=== PATIENT | male | born 1990 | race Two or more races ===

== ENCOUNTER 2025-10-07 23:16 | Emergency (ER) | payer OTHER ==
[~2025-10-07] VITALS: Ht 180.3 cm; Wt 93.0 kg
[2025-10-07] MEDS ORDERED: IBUPROFEN 600 MG TABLET ONE (23:37)
[2025-10-07] MEDS ORDERED: ACETAMINOPHEN ES 500 MG TABLET ONE (23:37)
[2025-10-07] MEDS ORDERED: AMOX/CLAVULANATE 875 MG TABLET ONE (23:38)
[2025-10-07] MEDS ORDERED: TDAP [DIPH/PERTUSSIS/TET] 0.5 ML VIAL IM ONE (23:38)
[2025-10-07] MEDS: AMOX/CLAVULANATE 875 MG TABLET PO ONE (23:44)
[2025-10-07] MEDS: TDAP [DIPH/PERTUSSIS/TET] 0.5 ML VIAL IM ONE (23:44)
[2025-10-07] MEDS: ACETAMINOPHEN ES 500 MG TABLET PO ONE (23:45)
[2025-10-07] MEDS: IBUPROFEN 600 MG TABLET PO ONE (23:45)
[2025-10-08] MEDS ORDERED: IBUP-1490 PO (00:18)
[2025-10-08] MEDS ORDERED: AMOX-430 PO (00:18)
[2025-10-08 00:24] VITALS: BP 132/90; TEMP 98; O2SAT 99
== END 2025-10-08 00:25 | disposition home or self-care (01) ==
LOC: ER 23:20
DX: S61.251A Open bite of left index finger without damage to nail, initial encounter (principal); E03.9 Hypothyroidism, unspecified; W54.0XXA Bitten by dog, initial encounter; Y93.01 Activity, walking, marching and hiking; Y92.89 Other specified places as the place of occurrence of the external cause; Y99.8 Other external cause status
CPT/HCPCS: 73130-TC; 90715